=== PATIENT | female | born 1960 ===

== ENCOUNTER 2025-08-10 05:48 | Inpatient (IN) | payer MEDICAID, OTHER ==
[~2025-08-10] VITALS: Ht 152.4 cm; Wt 57.8 kg
--- NOTE | 2025-08-10 06:14 | ECG ---
[facility] Test Date: 2025-08-10 Test Time: 06:00:02 Pat Name: FIOR CHERRY Department: ED Room: 0248 Gender: F Panel Builder: giovanni : 1960 Requested By: EMERGENCY EMERGENCY Order Number: [id number] Reading MD: Andrea Vail Measurements Intervals [place] Rate: 77 P: 64 ME: 175 QRS: 70 QRSD: 151 T: 76 QT: 435 QTc: 493 Interpretive Statements Sinus rhythm Left bundle branch block Baseline wander in lead(s) V3 Electronically Signed On 08-11-2025 17:25:11 PST by Andrea Vail Please click the below link to view image of tracing.
[2025-08-10] MEDS: ALBUTEROL SULF 2.5 MG/0.5ML(0.5%) NEB SOLN NEB ONE (06:45)
[2025-08-10 06:58] LABS: Urine Protein, UAD Negative (Negative)
[2025-08-10] MEDS: ACETAMINOPHEN 325 MG TAB PO ONE ×2 (07:08→07:09)
[2025-08-10] MEDS: ONDANSETRON ODT 4 MG TAB PO ONE (07:09)
[2025-08-10] MEDS: SODIUM CHLORIDE 0.9% 1,000 ML IV ONE ×2 (07:09→09:38)
[2025-08-10] MEDS: IPRATROPIUM BROM 0.5 MG/2.5ML INH SOL NEB ONE (07:38)
[2025-08-10 07:53] LABS: Hemoglobin 12.6 g/dL (12.2-16.2); Nucleated Red Blood Cells % 0.1 %
[2025-08-10 07:55] LABS: Hematocrit 38.2 % (36.0-46.0); Mean Corpuscular Hemoglobin 29.2 pg (28.0-32.0); Mean Corpuscular Volume 88.8 fL (80.0-100.0)
[2025-08-10 08:01] LABS: Chloride 106 mmol/L (98-107); Potassium 4.4 mmol/L (3.5-5.1); Sodium 142 mmol/L (136-145)
[2025-08-10 08:02] LABS: Anion Gap 10 (5-15); Calcium 9.1 mg/dL (8.7-10.4); Carbon Dioxide 26 mmol/L (20-31)
[2025-08-10 08:07] LABS: BUN/Creatinine Ratio 18.3 (10.0-20.0); Blood Urea Nitrogen 19 mg/dL (9-23); Glucose 97 mg/dL (74-106)
--- NOTE | 2025-08-10 08:14 | DVH ---
INDICATION: sob TECHNIQUE: Frontal view of the chest. COMPARISON: None FINDINGS: . The heart and mediastinal contours are grossly unremarkable. There is no evidence of pleural disease. The lungs are clear. The bony structures of the chest are intact without fracture. IMPRESSION: 1. No evidence of acute disease.
--- NOTE | 2025-08-10 08:23 | ED.PDOC ---
SOB-HPI HPI Comments 63F presents to the ED with chief complaint of shortness of breath. Pt states that she has been having discomfort when taking deep breaths for 3 weeks. Last night Pt woke up unable to breathe properly, numbness in her tongue, and a sensation of "drowning." Pt attempted to use rescue inhaler but symptoms were not relieved. No noted exacerbating or relieving factors. Pt has associated symptoms of shoulder and neck pain. Pt denies associated symptoms of chest pain, diaphoresis, palpitations, chills, or fever. Pt said she recently went to urgent care and was given the covid and flu vaccines. Vitals are otherwise stable. Pt denies any other symptoms at this time. Chief Complaint: Shortness of Breath Time Seen by MD: 08:05 Reviewed notes: Nurses Notes Information Source: Patient Mode of Arrival: Wheelchair Past Medical History PAST MEDICAL HISTORY: Asthma Surgical History: Denies all surgeries [employer] History: No Pertinent [employer] History Family History Family History: Reviewed,noncontributory to illness, No family hx of Cancer, No family hx of DM, No family hx of Heart jordin, No family hx of HTN, No family hx ofKidney jordin, No family hx of Liver jordin, No family hx of Lung jordin, No family hx of Stroke Social History Smoker: Non-Smoker Alcohol: Denies ETOH Use Drugs: Denies Drug Use Lives In: Home Constitutional: denies: chills, diaphoresis, fatigue, fever, malaise, sweats, weakness, others EENTM: denies: blurred vision, double vision, ear bleeding, ear discharge, ear drainage, ear pain, ear ringing, eye pain, eye redness, hearing loss, mouth pain, mouth swelling, nasal discharge, nose bleeding, nose congestion, nose pa in, photophobia, tearing, throat pain, throat swelling, voice changes, others Respiratory: reports: SOB at rest, shortness of breath Cardiovascular: denies: chest pain, dizzy spells, diaphoresis, Dyspnea on exertion, edema, irregular heart beat, left arm pain, lightheadedness, palpitations, PND, syncope, others Gastrointestinal: denies: abdomen distended, abdominal pain, blood streaked bowels, constipated, diarrhea, dysphagia, difficulty swallowing, hematemesis, melena, nausea, poor appetite, poor fluid intake, rectal bleeding, rectal pain, vomiting, others Genitourinary: denies: abnormal vagina bleeding, burning, dyspareunia, dysuria, flank pain, frequency, hematuria, incontinence, pain, , vagina discharge, urgency, others Neurological: denies: dizziness, fainting, headache, left sided numbness, left sided weakness, numbness, paresthesia, pre-existing deficit, right sided numbness, right sided weakness, seizure, speech problems, tingling, tremors, weakness, others Musculoskeletal: reports: muscle pain Integumetry: denies: bruises, change in color, change in hair/nails, dryness, l aceration, lesions, lumps, rash, wounds, others Allergic/Immunocompromised: denies: Difficulty Healing, Frequent Infections, Hives, Itching, others Hematologic/Lymphatic: denies: anemia, blood clots, easy bleeding, easy bruising, swollen glands, others Endocrine: denies: excessive hunger, excessive sweating, excessive thirst, excessive urination, flushing, intolerance to cold, intolerance to heat, unexplained weight gain, unexplained weight loss, others Psychiatric: denies: anxiety, bipolar disorder, depression, hopeless, panic disorder, schizophrenia, sleepless, suicidal, others All Other Systems: Reviewed and Negative Physical Exam General Appearance: Mild Distress HEENT: Pharynx Normal Neck: Normal Inspection Respiratory: No Respiratory Distress Cardiovascular: No Edema Breast Exam: Deferred Gastrointestinal: Non Tender Genitalia: Deferred Pelvic: Deferred Rectal: Deferred Extremities: No pedal edema Neurologic: No Motor Deficits Cerebellar Function: NOT DONE Reflexes: NOT DONE Skin: Normal Color Lymphatic: NOT DONE EKG EKG : Pulse Rate (adult): 77 [place]: Normal Cardiac Rhythm: NSR Block: LBBB Hypertrophy: None Comments Sinus rhythm, Left bundle branch block, Baseline wander in lead(s) V3 Was a procedure done? Was a procedure done?: No Differential Dx Differential Diagnosis: Asthma, Respiratory Distress X-Ray, Labs, Meds, VS Vital Signs Date Time Temp Pulse Resp B/P (MAP) Pulse Ox O2 Delivery O2 Flow Rate FiO2 08/10/25 08:30 98.0 70 20 93/63 (73) 100 98.0 08/10/25 08:30 70 20 100 Room Air 08/10/25 08:23 77 08/10/25 07:38 16 96 Room Air* 0 21 08/10/25 06:00 77 08/10/25 05:50 99.3 81 19 129/84 100 99.3 Lab Test 08/10/25 07:28 08/10/25 07:22 08/10/25 06:13 Range/Units White Blood Count 6.0 4.4-10.8 10^3/uL Red Blood Count 4.30 4.0-5.20 10^6/uL Hemoglobin 12.6 12.2-16.2 g/dL Hematocrit 38.2 36.0-46.0 % Mean Corpuscular Volume 88.8 80.0-100.0 fL Mean Corpuscular Hemoglobin 29.2 28.0-32.0 pg Mean Corpuscular Hemoglobin Concent 32.9 32.0-36.0 g/dL Red Cell Distribution Width 13.4 11.8-14.3 % Platelet Count 461 H 140-450 10^3/uL Mean Platelet Volume 6.3 L 6.9-10.8 fL Neutrophils (%) (Auto) 50.1 37.0-80.0 % Lymphocytes (%) (Auto) 32.6 10.0-50.0 % Monocytes (%) (Auto) 7.5 0.0-12.0 % Eosinophils (%) (Auto) 8.6 H 0.0-7.0 % Basophils (%) (Auto) 1.2 0.0-2.0 % Neutrophils # (Auto) 3.0 1.6-8.6 10 ^3/uL Lymphocytes # (Auto) 2.0 0.4-5.4 10 ^3/uL Monocytes # (Auto) 0.4 0-1.3 10 ^3/uL Eosinophils # (Auto) 0.5 0-0.8 10 ^3/uL Basophils # (Auto) 0.1 0-0.2 10 ^3/uL Nucleated Red Blood Cells 0.1 % Sodium Level 142 136-145 mmol/L Potassium Level 4.4 3.5-5.1 mmol/L Chloride Level 106 98-107 mmol/L Carbon Dioxide Level 26 20-31 mmol/L Anion Gap 10 5-15 Blood Urea Nitrogen 19 9-23 mg/dL Creatinine 1.04 H 0.550-1.02 mg/dL Glomerular Filtration Rate Calc 60 >90 mL/min BUN/Creatinine Ratio 18.3 10.0-20.0 Serum Glucose 97 74-106 mg/dL Calcium Level 9.1 8.7-10.4 mg/dL Troponin I High Sensitivity 3 L </=34 ng/L Lactic Acid Level 1.4 0.4-2.0 mmol/L Urine Color Colorless Yellow Urine Clarity Clear Clear Urine pH 5.0 5.0-9.0 Urine Specific [place] 1.013 1.001-1.035 Urine Protein Negative Negative Urine Ketones Negative Negative Urine Blood Negative Negative /uL Urine Nitrite Negative Negative Urine Bilirubin Negative Negative Urine Urobilinogen Normal Negative mg/dL Urine Leukocyte Esterase 3+ Negative /uL Urine RBC 3 0 - 4 /hpf Urine Microscopic WBC 16 H 0-5 /HPF Urine Squamous Epithelial Cells Few <5 /hpf Urine Bacteria None seen None Seen /hpf Urine Mucus Few None Seen Urine Glucose 4+ H Normal mg/dL Current Medications Medications (Trade) Dose Ordered Sig/Erica Route Start Time Stop Time Status Last Admin Sodium Chloride 1,000 ml @ 1,000 mls/hr Q1H ONCE IV 08/10/25 06:45 08/10/25 07:44 DC 08/10/25 07:09 Acetaminophen (Tylenol Tablet) 650 mg ONCE ONCE PO 08/10/25 06:45 08/10/25 06:46 DC 08/10/25 07:08 Ondansetron HCl (Zofran Po) 4 mg ONCE ONCE PO 08/10/25 06:45 08/10/25 06:46 DC 08/10/25 07:09 Albuterol (Ventolin Medneb) 5 mg ONCE ONCE NEB 08/10/25 06:45 08/10/25 06:46 DC 08/10/25 06:45 Ipratropium [place] (Atrovent Medneb) 0.5 mg ONCE ONCE NEB 08/10/25 06:45 08/10/25 06:46 DC 08/10/25 07:[address] [address] Ph: [phone] DIAGNOSTIC IMAGING Diagnostic Imaging Report : [id number] Signed PATIENT: FIOR CHERRY ACCT: [id number] UNIT: [id number] : 1960 LOC: ER ROOM / BED: / AGE / SEX: 64 / F ADM STATUS: REG ER SERVICE 3 ORDERING PHYSICIAN: MITCHELL GUZMAN MD PROCEDURE(s): CXRP - CHEST PORTABLE REASON: sob ORDER NUMBER(s): [id number], ACCESSION NUMBER(s): [id number] INDICATION: sob TECHNIQUE: Frontal view of the chest. COMPARISON: None FINDINGS: . The heart and mediastinal contours are grossly unremarkable. There is no evidence of pleural disease. The lungs are clear. The bony structures of the chest are intact without fracture. IMPRESSION: 1. No evidence of acute disease. ATED BY: OMI TAYLOR MD DICTATED DATE/TIME: 08/10/25811 SIGNED BY: OMI TAYLOR MD SIGNED DATE/TIME: 08/10/25811 CC: Time of 1ST Reevaluation: 08:35 Reevaluation 1ST: Improved Patient Education/Counseling: Diagnosis, Treatment Family Education/Counseling: No Family Present SEPSIS Sepsis Screen Date sepsis recognized/suspect: Aug 10, 2025 Time Sepsis recognized/suspect: 0550 Recent Procedure: No On Antibiotic Therapy: No Respiratory Rate >20: No Heart Rate >90: No Temp<36 C (96.8 F) or >38.3 C: No SBP <90 or MAP <65 mmHG: No New Acute Mental Status Change: No Is the patient on CPAP, BIPAP,: No Physician Orders Chest Portable (08/10/25 06:44) Electrocardigram (08/10/25 06:44) Blood Culture (08/10/25 06:44) Troponin-I Hs (08/10/25 07:44) Troponin-I Hs (08/10/25 09:44) Electrocardigram (08/10/25 07:44) Electrocardigram (08/10/25 09:44) Ceftriaxone 1gm/50ml (Rocephin) (08/10/25 08:45) Ketorolac Injection (Toradol Injection) (08/10/25 08:45) Sodium Chloride 0.9% (08/10/25 08:45) Vital Signs Date Time Temp Pulse Resp B/P (MAP) Pulse Ox O2 Delivery O2 Flow Rate FiO2 08/10/25 08:30 98.0 70 20 93/63 (73) 100 98.0 12/17/25 08:30 70 20 100 Room Air 08/10/25 08:23 77 08/10/25 07:38 16 96 Room Air* 0 21 08/10/25 06:00 77 08/10/25 05:50 99.3 81 19 129/84 100 99.3 Laboratory Tests Test 08/10/25 07:22 08/10/25 07:28 Lactic Acid Level 1.4 mmol/L (0.4-2.0) White Blood Count 6.0 10^3/uL (4.4-10.8) Medications Medications Dose Ordered Sig/Erica Route Start Time Stop Time Status Last Admin Dose Admin Acetaminophen 650 mg ONCE ONCE PO 08/10/25 06:45 08/10/25 06:46 DC 08/10/25 07:08 Albuterol 5 mg ONCE ONCE NEB 08/10/25 06:45 08/10/25 06:46 DC 08/10/25 06:45 Ipratropium [place] 0.5 mg ONCE ONCE NEB 08/10/25 06:45 08/10/25 06:46 DC 08/10/25 07:38 Ondansetron HCl 4 mg ONCE ONCE PO 08/10/25 06:45 08/10/25 06:46 DC 08/10/25 07:09 Sodium Chloride 1,000 ml @ 1,000 mls/hr Q1H ONCE IV 08/10/25 06:45 08/10/25 07:44 DC 08/10/25 07:09 Departure 1 Departure Time of Disposition: 08:42 (Patient with a complicated urinary tract infection I sent him for a suspected sepsis. We will admit patient for further workup and expert consultation) Impression: Primary Impression: Suspected sepsis Additional Impressions: Complicated UTI (urinary tract infection) Generalized weakness Disposition: ADMITTED INPATIENT Admit to: Med Surg Condition: Guarded Critical Care Note Critical Care Time?: No Stability Stability form required: No Heart Score Heart Score: Heart Score Response (Comments) Value History Slightly Suspicious 0 EKG Normal 0 Age >65 2 Risk Factors No known risk factors 0 Troponin Normal limit 0 Total 2 I personally scribed for MITCHELL GUZMAN MD ([email or web address]) on 08/10/25 at 08:23. Electronically submitted by Nishant VELASCO). I personally scribed for MITCHELL GUZMAN MD ([email or web address]) on 08/10/25 at 08:25. Electronically submitted by Nishant Villegas ([email or web address]). MITCHELL GUZMAN MD Aug 10, 2025 08:23
[2025-08-10] MEDS: KETOROLAC TROMETH 30 MG/ML 1ML VIAL IV ONE (09:30)
--- NOTE | 2025-08-10 11:19 | DVHHP2 ---
History of Present Illness Reason for Visit: Shortness of breath History of Present Illness Jodi Rico is a 64-year-old female with past medical history of asthma, depression, and hyperlipidemia, who came to the hospital for shortness of breath. Patient states she was sleeping when she was abruptly woken up by coughing that caused her to become short of breath. She tired using her asthma medication to stop the coughing but it did not help. She states it began to feel like she couldn't breath so she ran to her daughter's room and asked her to call EMS. At time of assessment patient states she is still slightly short of breath, but is experiencing numbness and tingling in bilateral lower extremities. Smoke: No ALCOHOL: none Drugs: None Lives: with Family Domestic Violence: Neg Review of Systems Constitutional: No: Fever, Chills, Sweats, Weakness, Malaise, Other Eyes: No: Pain, Vision change, Conjunctivae inflammation, Eyelid inflammation, Other, Redness ENT: No: Ear pain, Ear discharge, Nose pain, Nose discharge, Nose congestion, Mouth pain, Mouth swelling, Throat pain, Throat swelling, Other Respiratory: Cough, Dry, Shortness of breath, SOB with excertion, Wheezing; No: Hemoptysis, Pleuritic Pain, Sputum, Wheezing, Other Cardiovascular: No: Chest Pain, Palpitations, Orthopnea, Paroxysmal Noc. Dyspnea, Edema, Lt Headedness, Other Gastrointestinal: No: Nausea, Vomiting, Abdominal Pain, Diarrhea, Constipation, Melena, Hematochezia, Other Genitourinary: No Dysuria, No Frequency, No Incontinence, No Hematuria, No Retention, No Other Musculoskeletal: No: other, neck pain, shoulder pain, arm pain, back pain, hand pain, leg pain, foot pain Skin: No: Rash, Lesions, Jaundice, Bruising, Other Neurological: Numbness (bilateral lower extremities); No: Weakness, Incoordination, Change in speech, Confusion, Seizures, Other Allergies: Coded Allergies: NO KNOWN ALLERGIES (Unverified , 08/10/25) Exam Vital Signs Vital Signs Date Time Temp Pulse Resp B/P (MAP) Pulse Ox O2 Delivery O2 Flow Rate FiO2 08/10/25 08:30 98.0 70 20 93/63 (73) 100 98.0 08/10/25 08:30 Room Air 08/10/25 07:38 0 21 General Appearance: Alert, Oriented X3, Cooperative, mild distress HEENT: Atraumatic, PERRLA, Mucous membr. moist/pink Respiratory: Clear to auscultation, Normal air movement Cardiovascular: Regular rate, Normal S1, Normal S2, No murmurs Abdominal: Normal bowel sounds, Soft, No tenderness Extremities: No clubbing, No cyanosis, No edema, Normal pulses Skin: No rashes, No breakdown, No significant lesion Neuro: Normal gait, Normal speech, Strength at 5/5 X4 ext Psych/Mental Status: Other (severe anxiety) Labs/Xrays Labs Test 08/10/25 08:37 08/10/25 07:28 08/10/25 07:22 08/10/25 06:13 Range/Units Troponin I High Sensitivity 4 </=34 ng/L White Blood Count 6.0 4.4-10.8 10^3/uL Red Blood Count 4.30 4.0-5.20 10^6/uL Hemoglobin 12.6 12.2-16.2 g/dL Hematocrit 38.2 36.0-46.0 % Mean Corpuscular Volume 88.8 80.0-100.0 fL Mean Corpuscular Hemoglobin 29.2 28.0-32.0 pg Mean Corpuscular Hemoglobin Concent 32.9 32.0-36.0 g/dL Red Cell Distribution Width 13.4 11.8-14.3 % Platelet Count 461 H 140-450 10^3/uL Mean Platelet Volume 6.3 L 6.9-10.8 fL Neutrophils (%) (Auto) 50.1 37.0-80.0 % Lymphocytes (%) (Auto) 32.6 10.0-50.0 % Monocytes (%) (Auto) 7.5 0.0-12.0 % Eosinophils (%) (Auto) 8.6 H 0.0-7.0 % Basophils (%) (Auto) 1.2 0.0-2.0 % Neutrophils # (Auto) 3.0 1.6-8.6 10 ^3/uL Lymphocytes # (Auto) 2.0 0.4-5.4 10 ^3/uL Monocytes # (Auto) 0.4 0-1.3 10 ^3/uL Eosinophils # (Auto) 0.5 0-0.8 10 ^3/uL Basophils # (Auto) 0.1 0-0.2 10 ^3/uL Nucleated Red Blood Cells 0.1 % Sodium Level 142 136-145 mmol/L Potassium Level 4.4 3.5-5.1 mmol/L Chloride Level 106 98-107 mmol/L Carbon Dioxide Level 26 20-31 mmol/L Anion Gap 10 5-15 Blood Urea Nitrogen 19 9-23 mg/dL Creatinine 1.04 H 0.550-1.02 mg/dL Glomerular Filtration Rate Calc 60 >90 mL/min BUN/Creatinine Ratio 18.3 10.0-20.0 Serum Glucose 97 74-106 mg/dL Calcium Level 9.1 8.7-10.4 mg/dL Lactic Acid Level 1.4 0.4-2.0 mmol/L Urine Color Colorless Yellow Urine Clarity Clear Clear Urine pH 5.0 5.0-9.0 Urine Specific [place] 1.013 1.001-1.035 Urine Protein Negative Negative Urine Ketones Negative Negative Urine Blood Negative Negative /uL Urine Nitrite Negative Negative Urine Bilirubin Negative Negative Urine Urobilinogen Normal Negative mg/dL Urine Leukocyte Esterase 3+ Negative /uL Urine RBC 3 0 - 4 /hpf Urine Microscopic WBC 16 H 0-5 /HPF Urine Squamous Epithelial Cells Few <5 /hpf Urine Bacteria None seen None Seen /hpf Urine Mucus Few None Seen Urine Glucose 4+ H Normal mg/dL TECHNIQUE: Frontal view of the chest. FINDINGS: The heart and mediastinal contours are grossly unremarkable. There is no evidence of pleural disease. The lungs are clear. The bony structures of the chest are intact without fracture. IMPRESSION: 1. No evidence of acute disease. SEPSIS Sepsis Screen Date sepsis recognized/suspect: Aug 10, 2025 Time Sepsis recognized/suspect: 0550 Recent Procedure: No On Antibiotic Therapy: No Respiratory Rate >20: No Heart Rate >90: No Temp<36 C (96.8 F) or >38.3 C: No SBP <90 or MAP <65 mmHG: No New Acute Mental Status Change: No Is the patient on CPAP, BIPAP,: No Physician Orders Chest Portable (08/10/25 06:44) Electrocardigram (08/10/25 06:44) Blood Culture (08/10/25 06:44) Electrocardigram (08/10/25 07:44) Electrocardigram (08/10/25 09:44) Vital Signs Date Time Temp Pulse Resp B/P (MAP) Pulse Ox O2 Delivery O2 Flow Rate FiO2 08/10/25 08:30 98.0 70 20 93/63 (73) 100 98.0 08/10/25 08:30 70 20 100 Room Air 08/10/25 08:23 77 08/10/25 07:38 16 96 Room Air* 0 21 08/10/25 06:00 77 08/10/25 05:50 99.3 81 19 129/84 100 99.3 Laboratory Tests Test 08/10/25 07:22 08/10/25 07:28 Lactic Acid Level 1.4 mmol/L (0.4-2.0) White Blood Count 6.0 10^3/uL (4.4-10.8) Medications Medications Dose Ordered Sig/Erica Route Start Time Stop Time Status Last Admin Dose Admin Acetaminophen 650 mg ONCE ONCE PO 08/10/25 06:45 08/10/25 06:46 DC 08/10/25 07:08 650 MG Albuterol 5 mg ONCE ONCE NEB 08/10/25 06:45 08/10/25 06:46 DC 08/10/25 06:45 5 MG Ceftriaxone Sodium 50 ml @ 100 mls/hr ONCE ONCE IV 08/10/25 08:45 08/10/25 09:14 DC 08/10/25 09:30 100 MLS/HR Ipratropium [place] 0.5 mg ONCE ONCE NEB 08/10/25 06:45 08/10/25 06:46 DC 08/10/25 07:38 0.5 MG Ketorolac Tromethamine 15 mg ONCE ONCE IV 08/10/25 08:45 08/10/25 08:56 DC 08/10/25 09:30 15 MG Ondansetron HCl 4 mg ONCE ONCE PO 08/10/25 06:45 08/10/25 06:46 DC 08/10/25 07:09 4 MG Sodium Chloride 1,000 ml @ 1,000 mls/hr Q1H ONCE IV 08/10/25 06:45 08/10/25 07:44 DC 08/10/25 07:09 1,000 MLS/HR Sodium Chloride 1,000 ml @ 1,000 mls/hr Q1H ONCE IV 08/10/25 08:45 08/10/25 09:44 DC 08/10/25 09:38 1,000 MLS/HR Assessment/Plan Assessment/Plan Assessment: Bilateral leg paresthesia, Dyspnea, Asthma exacerbation, Depression, Hyperlipidemia, 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
[2025-08-10 13:00] VITALS: BP 128/74; PULSE 66; RESP 14; TEMP 98.1; O2SAT 97
[2025-08-10] MEDS: HYDROcodone-ACET 5/325MG TAB PO PRN (13:26)
[2025-08-10] MEDS: SODIUM CHLOR 0.9% PF (SALINE LOCK) 10ML VIAL/SYR IV SCH (13:26)
[2025-08-10] MEDS: ACETAMINOPHEN 325 MG TAB PO PRN (17:08)
[2025-08-10 17:30] VITALS: BP 144/82; PULSE 58; RESP 19; TEMP 98; O2SAT 98
[2025-08-10 20:00] VITALS: PULSE 60; RESP 16; O2SAT 97
[2025-08-10 21:00] VITALS: BP 111/72; PULSE 60; RESP 16; TEMP 97.9; O2SAT 97
[2025-08-11] VITALS (13 sets, daily range): BP systolic 106–127; BP diastolic 58–85; PULSE 56–97; RESP 14–19; TEMP 97.8–98.7; O2SAT 91–100
[2025-08-11 06:45] LABS: Hematocrit 37.9 % (36.0-46.0); Hemoglobin 12.7 g/dL (12.2-16.2); Mean Corpuscular Hemoglobin 29.8 pg (28.0-32.0); Mean Corpuscular Volume 88.6 fL (80.0-100.0); Nucleated Red Blood Cells % 0.1 %
[2025-08-11 07:07] LABS: Alanine Aminotransferase 17 U/L (7-40); Albumin 4.4 g/dL (3.2-4.8); Alkaline Phosphatase 74 U/L (46-116); Anion Gap 11 (5-15); BUN/Creatinine Ratio 18.9 (10.0-20.0); Blood Urea Nitrogen 18 mg/dL (9-23); Calcium 9.5 mg/dL (8.7-10.4); Carbon Dioxide 25 mmol/L (20-31); Chloride 105 mmol/L (98-107); Glucose 104 mg/dL (74-106); Potassium 4.7 mmol/L (3.5-5.1); Sodium 141 mmol/L (136-145); Total Protein 7.4 g/dL (5.7-8.2)
[2025-08-11 07:15] LABS: Bilirubin, Total 0.4 mg/dL (0.2-1.0)
[2025-08-11] MEDS: IPRATROPIUM BROM 0.5 MG/2.5ML INH SOL NEB PRN (11:26)
[2025-08-11] MEDS: ALBUTEROL SULF 2.5 MG/0.5ML(0.5%) NEB SOLN NEB PRN (11:26)
[2025-08-11] MEDS ORDERED: AZITHROMYCIN 500MG/250ML 250 ML IV ONE (12:45)
[2025-08-11] MEDS: methylPREDNISolone SOD SUCC 125 MG/2 ML VL IV SCH (14:11)
[2025-08-11] MEDS: AZITHROMYCIN 250 MG TAB PO ONE (14:12)
[2025-08-11] MEDS: ONDANSETRON HCL 4 MG/2 ML VIAL IV PRN (16:06)
[2025-08-11] MEDS: DOCUSATE SOD 100 MG CAP PO PRN (16:06)
[2025-08-11] MEDS: MAALOX PLUS or MAALOX 30 ML PO PRN (21:30)
--- NOTE | 2025-08-11 23:18 | DVHPN2 ---
Subjective The patient seen and examined at bedside. Still have numbness of leg. Reviewed: Care Plan, H&P, Labs, Medications, Previous Orders, Radiology Changes from previous H/P or p: No Changes Eyes: No Pain, No Vision change, No Conjunctivae inflammation, No Eyelid inflammation, No Other, No Redness ENT: No Ear pain, No Ear discharge, No Nose pain, No Nose discharge, No Nose congestion, No Mouth pain, No Mouth swelling, No Throat pain, No Throat swelling, No Other Cardiovascular: No Chest Pain, No Palpitations, No Orthopnea, No Paroxysmal Noc. Dyspnea, No Edema, No Lt Headedness, No Other Respiratory: Cough, Dry, Shortness of breath, SOB with excertion, Wheezing; No Hemoptysis, No Pleuritic Pain, No Sputum, No Other Gastrointestinal: No Nausea, No Vomiting, No Abdominal Pain, No Diarrhea, No Constipation, No Melena, No Hematochezia, No Other Genitourinary: No Dysuria, No Frequency, No Incontinence, No Hematuria, No Retention, No Other Musculoskeletal: No other, No neck pain, No shoulder pain, No arm pain, No back pain, No hand pain, No leg pain, No foot pain Skin: No Rash, No Lesions, No Jaundice, No Bruising, No Other Objective Vitals Vital Signs Date Time Temp Pulse Resp B/P (MAP) Pulse Ox O2 Delivery O2 Flow Rate FiO2 08/11/25 21:00 97.9 76 18 123/78 (93) 95 97.9 08/11/25 20:00 Nasal Cannula* 2 28 Intake/Output Intake and Output 08/11/25 07:00 Intake Total 2850 ml Balance 2850 ml Intake Oral 800 ml IV Total 2050 ml # Voids 4 # Bowel Movements 2 General Appearance: Alert, Oriented X3, Cooperative, No acute distress HEENT: Atraumatic, PERRLA, EOMI, Mucous membr. moist/pink Neck: Supple Lungs: Clear to auscultation, Normal air movement Cardiovascular: Regular rate, Normal S1, Normal S2, No murmurs, Gallops, Rubs Abdomen: Normal bowel sounds, Soft, No tenderness Neuro: Cranial nerves 3-12 NL Psych/Mental Status: Mental status NL Medications Current Medications Medications Dose Ordered Sig/Erica Route Start Time Stop Time Status Last Admin Dose Admin Sodium Chloride 10 ml Q8HR IV 08/10/25 14:00 08/11/25 21:29 10 ML Acetaminophen/ Hydrocodone Bitart 1 tab Q4HP PRN PO 08/10/25 11:15 08/11/25 21:33 1 TAB Ondansetron HCl 4 mg Q4HP PRN IV 08/10/25 11:15 08/11/25 16:06 4 MG Docusate Sodium 100 mg BIDPRN PRN PO 08/10/25 11:15 08/11/25 16:06 100 MG Acetaminophen 650 mg Q6HP PRN PO 08/10/25 11:15 08/11/25 14:19 650 MG Ipratropium [place] 0.5 mg Q6HPRN PRN NEB 08/11/25 10:15 08/11/25 11:26 0.5 MG Albuterol 2.5 mg Q6HPRN PRN NEB 08/11/25 10:15 08/11/25 11:26 2.5 MG Ceftriaxone Sodium 50 ml @ 100 mls/hr DAILY@09 IV 08/12/25 09:00 Methylprednisolone Sodium Succinate 60 mg Q8HR IV 08/11/25 14:00 08/11/25 21:30 60 MG Azithromycin 500 mg DAILY PO 08/12/25 10:00 Pantoprazole Sodium 40 mg DAILY@0600 PO 08/12/25 06:00 Al Hydrox/Mg Hydrox/Simethicone 30 ml Q4HP PRN PO 08/11/25 20:00 08/11/25 21:30 30 ML Laboratory Results Laboratory Tests 08/11/25 05:43 Chemistry Test 08/11/25 05:43 Albumin 4.4 g/dL (3.2-4.8) Calcium Level 9.5 mg/dL (8.7-10.4) Total Protein 7.4 g/dL (5.7-8.2) LFT Test 08/11/25 05:43 Alanine Aminotransferase (ALT) 17 U/L (7-40) Alkaline Phosphatase 74 U/L (46-116) Aspartate Amino Transferase (AST) 18 U/L (13-40) Total Bilirubin 0.4 mg/dL (0.2-1.0) Urinalysis Test 08/10/25 06:13 Urine Color Colorless (Yellow) Urine Clarity Clear (Clear) Urine pH 5.0 (5.0-9.0) Urine Specific [place] 1.013 (1.001-1.035) Urine Protein Negative (Negative) Urine Ketones Negative (Negative) Urine Blood Negative /uL (Negative) Urine Nitrite Negative (Negative) Urine Bilirubin Negative (Negative) Urine Urobilinogen Normal mg/dL (Negative) Urine Leukocyte Esterase 3+ /uL (Negative) Urine RBC 3 /hpf (0 - 4) Urine Microscopic WBC 16 /HPF (0-5) H Urine Squamous Epithelial Cells Few /hpf (<5) Urine Bacteria None seen /hpf (None Seen) Urine Mucus Few (None Seen) Urine Glucose 4+ mg/dL (Normal) H Microbiology Microbiology Date/Time Source Procedure Growth Status 08/10/25 07:40 Blood Blood Culture - Preliminary NO GROWTH AFTER 24 HOURS OF INCUBATION. Resulted Labs and/or images reviewed: Labs reviewed by me Assessment/Plan Assessment/Plan Asthma exacerbation, Bilateral leg paresthesia, Dyspnea, Depression, Hyperlipidemia, DM type 2 I will start patient on IV antibiotic: Rocephin and azithromax I will start the patient on Solumedrol 60mg IV q8h I will put patient on SSI , moderate scale. Will monitor leg numbness. Continue nebulize Plan discussed with: Patient My Orders Orders - GLADIS BRISENO MD Procedure Category Date Status Time Ipratropium Medneb PHA 08/11/25 In Process (Atrovent Medneb) 10:15 Med Jaret Sub Treatment RT 08/11/25 Logged 10:09 Med Neb Initial RT 08/11/25 Logged Treatment 10:09 Cont Med Neb Intial Tx RT 08/11/25 Logged 10:09 Albuterol Medneb PHA 08/11/25 In Process (Ventolin Medneb) 10:15 Ceftriaxone 1gm/50ml PHA 08/12/25 In Process (Rocephin) 09:00 Methylprednisolone PHA 08/11/25 In Process Sod Succ (Solu Medrol 14:00 Azithromycin Tablet PHA 08/12/25 In Process (Zithromax Tablet) 10:00 Pantoprazole Tablet PHA 08/12/25 In Process (Protonix Tablet) 06:00 Alum & Mag PHA 08/11/25 In Process Hydrox-Simethicone 20:00 Date of Service: Aug 11, 2025 Billing Provider: GLADIS BRISENO MD Common Visit Codes: [id number] INP/OBS CARE(HIGH) GLADIS BRISENO MD Aug 11, 2025 23:18
[2025-08-12] VITALS (11 sets, daily range): BP systolic 110–135; BP diastolic 64–76; PULSE 67–77; RESP 14–19; TEMP 97–98.2; O2SAT 90–99
[2025-08-12] MEDS: PANTOPRAZOLE 40 MG TAB PO SCH (05:33)
[2025-08-12] MEDS: AZITHROMYCIN 250 MG TAB PO SCH (08:20)
[2025-08-12] MEDS ORDERED: AZITHROMYCIN 500MG/250ML 250 ML IV SCH (10:00)
[2025-08-12] MEDS: POLYETHYLENE GLYCOL 17 GM PWDR PO PRN (10:07)
[2025-08-12] MEDS ORDERED: ALBUTEROL SULF 2.5 MG/0.5ML(0.5%) NEB SOLN NEB PRN (12:00)
[2025-08-12] MEDS ORDERED: IPRATROPIUM BROM 0.5 MG/2.5ML INH SOL NEB PRN (12:00)
--- NOTE | 2025-08-12 12:26 | DVH ---
EXAM: XY R SHOULDER 2+ VIEW XRAY CLINICAL INDICATION: RIGHT SHOULDER PAIN TECHNIQUE: XY R SHOULDER 2+ VIEW XRAY COMPARISON: None FINDINGS/IMPRESSION: There is no evidence of acute fracture or dislocation. Degenerative changes noted. The alignment is anatomical. There is no radiopaque foreign body.
--- NOTE | 2025-08-12 13:27 | DVHPN2 ---
Subjective The patient seen and examined at bedside. Still have numbness of leg. Now also complains of headache. Reviewed: Care Plan, H&P, Labs, Medications, Previous Orders, Radiology Changes from previous H/P or p: No Changes Eyes: No Pain, No Vision change, No Conjunctivae inflammation, No Eyelid inflammation, No Other, No Redness ENT: No Ear pain, No Ear discharge, No Nose pain, No Nose discharge, No Nose congestion, No Mouth pain, No Mouth swelling, No Throat pain, No Throat swelling, No Other Cardiovascular: No Chest Pain, No Palpitations, No Orthopnea, No Paroxysmal Noc. Dyspnea, No Edema, No Lt Headedness, No Other Respiratory: Cough, Dry, Shortness of breath, SOB with excertion, Wheezing; No Hemoptysis, No Pleuritic Pain, No Sputum, No Other Gastrointestinal: No Nausea, No Vomiting, No Abdominal Pain, No Diarrhea, No Constipation, No Melena, No Hematochezia, No Other Genitourinary: No Dysuria, No Frequency, No Incontinence, No Hematuria, No Retention, No Other Musculoskeletal: No other, No neck pain, No shoulder pain, No arm pain, No back pain, No hand pain, No leg pain, No foot pain Skin: No Rash, No Lesions, No Jaundice, No Bruising, No Other Objective Vitals Vital Signs Date Time Temp Pulse Resp B/P (MAP) Pulse Ox O2 Delivery O2 Flow Rate FiO2 08/12/25 13:00 97.0 67 16 110/64 (79) 97 97.0 08/12/25 10:00 Room Air 0.0 08/12/25 10:00 21 Intake/Output Intake and Output 08/12/25 07:00 Intake Total 1140 ml Balance 1140 ml Intake Oral 1140 ml # Voids 8 General Appearance: Alert, Oriented X3, Cooperative, No acute distress HEENT: Atraumatic, PERRLA, EOMI, Mucous membr. moist/pink Neck: Supple Lungs: Clear to auscultation, Normal air movement Cardiovascular: Regular rate, Normal S1, Normal S2, No murmurs, Gallops, Rubs Abdomen: Normal bowel sounds, Soft, No tenderness Neuro: Cranial nerves 3-12 NL Psych/Mental Status: Mental status NL Medications Current Medications Medications Dose Ordered Sig/Erica Route Start Time Stop Time Status Last Admin Dose Admin Sodium Chloride 10 ml Q8HR IV 08/10/25 14:00 08/12/25 05:32 10 ML Acetaminophen/ Hydrocodone Bitart 1 tab Q4HP PRN PO 08/10/25 11:15 08/12/25 02:05 1 TAB Ondansetron HCl 4 mg Q4HP PRN IV 08/10/25 11:15 08/12/25 08:20 4 MG Docusate Sodium 100 mg BIDPRN PRN PO 08/10/25 11:15 08/12/25 08:20 100 MG Acetaminophen 650 mg Q6HP PRN PO 08/10/25 11:15 08/12/25 08:20 650 MG Ceftriaxone Sodium 50 ml @ 100 mls/hr DAILY@09 IV 08/12/25 09:00 08/12/25 08:20 100 MLS/HR Methylprednisolone Sodium Succinate 60 mg Q8HR IV 08/11/25 14:00 08/12/25 05:33 60 MG Azithromycin 500 mg DAILY PO 08/12/25 10:00 08/12/25 08:20 500 MG Pantoprazole Sodium 40 mg DAILY@0600 PO 08/12/25 06:00 08/12/25 05:33 40 MG Al Hydrox/Mg Hydrox/Simethicone 30 ml Q4HP PRN PO 08/11/25 20:00 08/12/25 05:32 30 ML Albuterol 2.5 mg Q4HPRN PRN NEB 08/12/25 12:00 Ipratropium [place] 0.5 mg Q4HPRN PRN NEB 08/12/25 12:00 Polyethylene Glycol 17 gm DAILYPRN PRN PO 08/12/25 09:30 08/12/25 10:07 17 GM Laboratory Results Laboratory Tests 08/11/25 05:43 Urinalysis Test 08/10/25 06:13 Urine Color Colorless (Yellow) Urine Clarity Clear (Clear) Urine pH 5.0 (5.0-9.0) Urine Specific [place] 1.013 (1.001-1.035) Urine Protein Negative (Negative) Urine Ketones Negative (Negative) Urine Blood Negative /uL (Negative) Urine Nitrite Negative (Negative) Urine Bilirubin Negative (Negative) Urine Urobilinogen Normal mg/dL (Negative) Urine Leukocyte Esterase 3+ /uL (Negative) Urine RBC 3 /hpf (0 - 4) Urine Microscopic WBC 16 /HPF (0-5) H Urine Squamous Epithelial Cells Few /hpf (<5) Urine Bacteria None seen /hpf (None Seen) Urine Mucus Few (None Seen) Urine Glucose 4+ mg/dL (Normal) H Microbiology Microbiology Date/Time Source Procedure Growth Status 08/10/25 07:40 Blood Blood Culture - Preliminary NO GROWTH AFTER 48 HOURS OF INCUBATION. Resulted Labs and/or images reviewed: Labs reviewed by me Assessment/Plan Assessment/Plan Asthma exacerbation, Bilateral leg paresthesia, Dyspnea, Depression, Hyperlipidemia, DM type 2 I will start patient on IV antibiotic: Rocephin and azithromax I will start the patient on Solumedrol 60mg IV q8h I will put patient on SSI , moderate scale. Will monitor leg numbness. Continue nebulize Will give toradol 15mg IV q 8 h PRN for headache. Plan discussed with: Patient My Orders Orders - GLADIS BRISENO MD Procedure Category Date Status Time Pantoprazole Tablet PHA 08/12/25 In Process (Protonix Tablet) 06:00 Alum & Mag PHA 08/11/25 In Process Hydrox-Simethicone 20:00 Albuterol Medneb PHA 08/12/25 In Process (Ventolin Medneb) 12:00 Ipratropium Medneb PHA 08/12/25 In Process (Atrovent Medneb) 12:00 Polyethylene Glycol PHA 08/12/25 In Process 17g Powder (Miralax 09:30 R Shoulder 2+ View XY 08/12/25 Resulted Xray 11:05 Date of Service: Aug 12, 2025 Billing Provider: GLADIS BRISENO MD Common Visit Codes: [id number] INP/OBS CARE(HIGH) GLADIS BRISENO MD Aug 12, 2025 13:27
[2025-08-12] MEDS: KETOROLAC TROMETH 30 MG/ML 1ML VIAL IV PRN (16:22)
[2025-08-13] VITALS (10 sets, daily range): BP systolic 104–120; BP diastolic 59–73; PULSE 62–83; RESP 16–18; TEMP 96.7–98.1; O2SAT 95–98
[2025-08-13 07:04] LABS: Nucleated Red Blood Cells % 0.0 %
[2025-08-13 07:06] LABS: Hematocrit 37.8 % (36.0-46.0); Hemoglobin 12.5 g/dL (12.2-16.2); Mean Corpuscular Hemoglobin 29.5 pg (28.0-32.0); Mean Corpuscular Volume 89.1 fL (80.0-100.0)
[2025-08-13 08:32] LABS: Anion Gap 10 (5-15); Carbon Dioxide 28 mmol/L (20-31); Chloride 100 mmol/L (98-107); Potassium 5.1 mmol/L (3.5-5.1); Sodium 138 mmol/L (136-145)
[2025-08-13 08:33] LABS: Calcium 9.7 mg/dL (8.7-10.4)
[2025-08-13 08:38] LABS: BUN/Creatinine Ratio 21.2 (10.0-20.0); Blood Urea Nitrogen 22 mg/dL (9-23)
[2025-08-13 08:41] LABS: Glucose 149 mg/dL (74-106)
[2025-08-13] MEDS ORDERED: ARTIFICIAL TEARS 15ml EACHEYE PRN (12:00)
--- NOTE | 2025-08-13 14:34 | DVHPN2 ---
Subjective The patient seen and examined at bedside. Today she want shoulder injection. She complains of shoulder pain. XRay done. Reviewed: Care Plan, H&P, Labs, Medications, Previous Orders, Radiology Changes from previous H/P or p: No Changes Eyes: No Pain, No Vision change, No Conjunctivae inflammation, No Eyelid inflammation, No Other, No Redness ENT: No Ear pain, No Ear discharge, No Nose pain, No Nose discharge, No Nose congestion, No Mouth pain, No Mouth swelling, No Throat pain, No Throat swelling, No Other Cardiovascular: No Chest Pain, No Palpitations, No Orthopnea, No Paroxysmal Noc. Dyspnea, No Edema, No Lt Headedness, No Other Respiratory: Cough, Dry, Shortness of breath, SOB with excertion, Wheezing; No Hemoptysis, No Pleuritic Pain, No Sputum, No Other Gastrointestinal: No Nausea, No Vomiting, No Abdominal Pain, No Diarrhea, No Constipation, No Melena, No Hematochezia, No Other Genitourinary: No Dysuria, No Frequency, No Incontinence, No Hematuria, No Retention, No Other Musculoskeletal: No other, No neck pain, No shoulder pain, No arm pain, No back pain, No hand pain, No leg pain, No foot pain Skin: No Rash, No Lesions, No Jaundice, No Bruising, No Other Objective Vitals Vital Signs Date Time Temp Pulse Resp B/P (MAP) Pulse Ox O2 Delivery O2 Flow Rate FiO2 08/13/25 12:39 98.1 62 16 104/68 (80) 97 98.1 08/13/25 10:00 Nasal Cannula* 2 28 Intake/Output Intake and Output 08/13/25 07:00 Intake Total 1960 ml Balance 1960 ml Intake Oral 1960 ml # Voids 5 # Bowel Movements 2 General Appearance: Alert, Oriented X3, Cooperative, No acute distress HEENT: Atraumatic, PERRLA, EOMI, Mucous membr. moist/pink Neck: Supple Lungs: Clear to auscultation, Normal air movement Cardiovascular: Regular rate, Normal S1, Normal S2, No murmurs, Gallops, Rubs Abdomen: Normal bowel sounds, Soft, No tenderness Neuro: Cranial nerves 3-12 NL Psych/Mental Status: Mental status NL Medications Current Medications Medications Dose Ordered Sig/Erica Route Start Time Stop Time Status Last Admin Dose Admin Sodium Chloride 10 ml Q8HR IV 08/10/25 14:00 08/13/25 05:10 10 ML Acetaminophen/ Hydrocodone Bitart 1 tab Q4HP PRN PO 08/10/25 11:15 08/13/25 10:04 1 TAB Ondansetron HCl 4 mg Q4HP PRN IV 08/10/25 11:15 08/12/25 08:20 4 MG Docusate Sodium 100 mg BIDPRN PRN PO 08/10/25 11:15 08/12/25 08:20 100 MG Acetaminophen 650 mg Q6HP PRN PO 08/10/25 11:15 08/12/25 14:34 650 MG Ceftriaxone Sodium 50 ml @ 100 mls/hr DAILY@09 IV 08/12/25 09:00 08/13/25 09:58 100 MLS/HR Methylprednisolone Sodium Succinate 60 mg Q8HR IV 08/11/25 14:00 08/13/25 05:10 60 MG Azithromycin 500 mg DAILY PO 08/12/25 10:00 08/13/25 09:58 500 MG Pantoprazole Sodium 40 mg DAILY@0600 PO 08/12/25 06:00 08/13/25 05:10 40 MG Al Hydrox/Mg Hydrox/Simethicone 30 ml Q4HP PRN PO 08/11/25 20:00 08/12/25 05:32 30 ML Albuterol 2.5 mg Q4HPRN PRN NEB 08/12/25 12:00 Ipratropium [place] 0.5 mg Q4HPRN PRN NEB 08/12/25 12:00 Polyethylene Glycol 17 gm DAILYPRN PRN PO 08/12/25 09:30 08/13/25 09:57 17 GM Ketorolac Tromethamine 15 mg Q8HP PRN IV 08/12/25 15:00 08/17/25 14:59 08/12/25 16:22 15 MG Artificial Tears 1 drop Q4HP PRN EACHEYE 08/13/25 12:30 Laboratory Results Laboratory Tests 08/13/25 06:28 Chemistry Test 08/13/25 06:28 Calcium Level 9.7 mg/dL (8.7-10.4) Urinalysis Test 08/10/25 06:13 Urine Color Colorless (Yellow) Urine Clarity Clear (Clear) Urine pH 5.0 (5.0-9.0) Urine Specific [place] 1.013 (1.001-1.035) Urine Protein Negative (Negative) Urine Ketones Negative (Negative) Urine Blood Negative /uL (Negative) Urine Nitrite Negative (Negative) Urine Bilirubin Negative (Negative) Urine Urobilinogen Normal mg/dL (Negative) Urine Leukocyte Esterase 3+ /uL (Negative) Urine RBC 3 /hpf (0 - 4) Urine Microscopic WBC 16 /HPF (0-5) H Urine Squamous Epithelial Cells Few /hpf (<5) Urine Bacteria None seen /hpf (None Seen) Urine Mucus Few (None Seen) Urine Glucose 4+ mg/dL (Normal) H Microbiology Microbiology Date/Time Source Procedure Growth Status 08/10/25 07:40 Blood Blood Culture - Preliminary NO GROWTH AFTER 72 HOURS OF INCUBATION. Resulted Labs and/or images reviewed: Labs reviewed by me Assessment/Plan Assessment/Plan Asthma exacerbation, Bilateral leg paresthesia, Dyspnea, Depression, Hyperlipidemia, DM type 2 Left shoulder pain I will start patient on IV antibiotic: Rocephin and azithromax I will start the patient on Solumedrol 60mg IV q8h I will put patient on SSI , moderate scale. Will monitor leg numbness. Continue nebulize Will give toradol 15mg IV q 8 h PRN for headache. XRay left shoulder is negative for fracture. Explains to the patient that shoulder injection need to be done as outpatient. Patient need to ask her PCP to refer her to orthopedic surgeon Plan discussed with: Patient My Orders Orders - GLADIS BRISENO MD Procedure Category Date Status Time Ketorolac Injection PHA 08/12/25 In Process (Toradol Injection) 15:00 Complete Blood Count LAB 08/14/25 Verified 05:00 Complete Blood Count LAB 08/15/25 Verified 05:00 Basic Metabolic Panel LAB 08/14/25 Verified 05:00 Basic Metabolic Panel LAB 08/15/25 Verified 05:00 Artificial Tear 15ml PHA 08/13/25 In Process Opthalmic (Tears Na 12:30 Date of Service: Aug 13, 2025 Billing Provider: GLADIS BRISENO MD Common Visit Codes: [id number] INP/OBS CARE(HIGH) GLADIS BRISENO MD Aug 13, 2025 14:34
[2025-08-13] MEDS: ARTIFICIAL TEARS 15ml EACHEYE PRN (17:28)
[2025-08-14] VITALS (8 sets, daily range): BP systolic 101–123; BP diastolic 67–75; PULSE 65–72; RESP 16–19; TEMP 37.1; O2SAT 95–97
[2025-08-14 07:02] LABS: Calcium 9.7 mg/dL (8.7-10.4); Chloride 99 mmol/L (98-107); Potassium 4.4 mmol/L (3.5-5.1); Sodium 139 mmol/L (136-145)
[2025-08-14 07:03] LABS: Anion Gap 11 (5-15); Carbon Dioxide 29 mmol/L (20-31)
[2025-08-14 07:06] LABS: Hematocrit 38.3 % (36.0-46.0); Hemoglobin 12.8 g/dL (12.2-16.2); Mean Corpuscular Hemoglobin 29.4 pg (28.0-32.0); Mean Corpuscular Volume 88.3 fL (80.0-100.0); Nucleated Red Blood Cells % 0.0 %
[2025-08-14 07:08] LABS: BUN/Creatinine Ratio 22.5 (10.0-20.0); Blood Urea Nitrogen 20 mg/dL (9-23)
[2025-08-14 07:10] LABS: Glucose 140 mg/dL (74-106)
[2025-08-14] MEDS ORDERED: HYDR-4902 PO ×2 (14:05→14:53)
[2025-08-14] MEDS ORDERED: METH4PAK PO (14:08)
[2025-08-14] MEDS ORDERED: AZIT-185 PO (14:08)
--- NOTE | 2025-08-14 14:10 | DVHDS2 ---
Discharge Summary Date of Admission Aug 10, 2025 at 11:13 Date of Discharge: Aug 14, 2025 Admitting Diagnosis Asthma exacerbation, Bilateral leg paresthesia, Dyspnea, Depression, Hyperlipidemia, DM type 2 Left shoulder pain Labs/Diagnostic Data: Laboratory Results Test 08/14/25 05:42 08/11/25 05:43 08/10/25 08:37 08/10/25 07:22 White Blood Count 11.7 10^3/uL (4.4-10.8) Red Blood Count 4.34 10^6/uL (4.0-5.20) Hemoglobin 12.8 g/dL (12.2-16.2) Hematocrit 38.3 % (36.0-46.0) Mean Corpuscular Volume 88.3 fL (80.0-100.0) Mean Corpuscular Hemoglobin 29.4 pg (28.0-32.0) Mean Corpuscular Hemoglobin Concent 33.3 g/dL (32.0-36.0) Red Cell Distribution Width 13.7 % (11.8-14.3) Platelet Count 506 10^3/uL (140-450) Mean Platelet Volume 6.5 fL (6.9-10.8) Neutrophils (%) (Auto) 87.2 % (37.0-80.0) Lymphocytes (%) (Auto) 11.4 % (10.0-50.0) Monocytes (%) (Auto) 1.3 % (0.0-12.0) Eosinophils (%) (Auto) 0.0 % (0.0-7.0) Basophils (%) (Auto) 0.1 % (0.0-2.0) Neutrophils # (Auto) 10.2 10 ^3/uL (1.6-8.6) Lymphocytes # (Auto) 1.3 10 ^3/uL (0.4-5.4) Monocytes # (Auto) 0.2 10 ^3/uL (0-1.3) Eosinophils # (Auto) 0 10 ^3/uL (0-0.8) Basophils # (Auto) 0 10 ^3/uL (0-0.2) Nucleated Red Blood Cells 0.0 % Sodium Level 139 mmol/L (136-145) Potassium Level 4.4 mmol/L (3.5-5.1) Chloride Level 99 mmol/L (98-107) Carbon Dioxide Level 29 mmol/L (20-31) Anion Gap 11 (5-15) Blood Urea Nitrogen 20 mg/dL (9-23) Creatinine 0.89 mg/dL (0.550-1.02) Glomerular Filtration Rate Calc 72 mL/min (>90) BUN/Creatinine Ratio 22.5 (10.0-20.0) Serum Glucose 140 mg/dL (74-106) Calcium Level 9.7 mg/dL (8.7-10.4) Total Bilirubin 0.4 mg/dL (0.2-1.0) Aspartate Amino Transferase (AST) 18 U/L (13-40) Alanine Aminotransferase (ALT) 17 U/L (7-40) Alkaline Phosphatase 74 U/L (46-116) Total Protein 7.4 g/dL (5.7-8.2) Albumin 4.4 g/dL (3.2-4.8) Troponin I High Sensitivity 4 ng/L (</=34) Lactic Acid Level 1.4 mmol/L (0.4-2.0) Test 08/10/25 06:13 Urine Color Colorless (Yellow) Urine Clarity Clear (Clear) Urine pH 5.0 (5.0-9.0) Urine Specific [place] 1.013 (1.001-1.035) Urine Protein Negative (Negative) Urine Ketones Negative (Negative) Urine Blood Negative /uL (Negative) Urine Nitrite Negative (Negative) Urine Bilirubin Negative (Negative) Urine Urobilinogen Normal mg/dL (Negative) Urine Leukocyte Esterase 3+ /uL (Negative) Urine RBC 3 /hpf (0 - 4) Urine Microscopic WBC 16 /HPF (0-5) Urine Squamous Epithelial Cells Few /hpf (<5) Urine Bacteria None seen /hpf (None Seen) Urine Mucus Few (None Seen) Urine Glucose 4+ mg/dL (Normal) Other Laboratory Tests 08/14/25 05:42 Brief Hx & Hospital Course: This is a 64-year-old female with past medical history of asthma, depression, and hyperlipidemia, who came to the hospital for shortness of breath. Patient states she was sleeping when she was abruptly woken up by coughing that caused her to become short of breath. She tried using her asthma medication to stop the coughing but it did not help. She states it began to feel like she couldn't breath so she ran to her daughter's room and asked her to call EMS. She was admitted for asthma exacerbation. The patient was put on Ceftriaxone, and azithromax IV. Patient also on solumedrol IV and Nebulizer with atrovent and albuterol. Subsequently her respiratory status improved. She complains of shoulder pain. Xray show no fracture. She request injection, but I explained to her it can be done as outpatient. As right now, just pain medication. Today, her shortness of breath improved. She able to ambulate. I discharge her home. Advise her to follow up with PCP 1-2 weeks. Follow up with paper sales representative per schedule. General Appearance: Alert, Oriented X3, Cooperative, No acute distress HEENT: Atraumatic, PERRLA, EOMI, Mucous membr. moist/pink Neck: Supple Lungs: Clear to auscultation, Normal air movement Cardiovascular: Regular rate, Normal S1, Normal S2, No murmurs, Gallops, Rubs Abdomen: Normal bowel sounds, Soft, No tenderness Neuro: Cranial nerves 3-12 NL Psych/Mental Status: Mental status NL Condition at Discharge: Stable Final Diagnosis/Problems List Asthma exacerbation, Bilateral leg paresthesia, Dyspnea, Depression, Hyperlipidemia, DM type 2 Left shoulder pain Discharge Disposition: Home Discharge Instruct/Medications Diet: Cardiac 2g Na,low cholest Activity: No Restrictions, As Tolerated Follow Up/Referral: PCP 1-2 weeks Scheduled Azithromycin (Zithromax Tablet), 250 MG PO DAILY Methylprednisolone (Medrol Dosepak), 4 MG PO UD Pantoprazole Sodium Sesquihydr (Pantoprazole Sodium), 40 MG PO DAILY@0600 Scheduled PRN Albuterol Sulfate (Ventolin), 2.5 MG NEB Q4HPRN PRN Hydrocodone-Acetaminophen (Hydrocodone Bitartrate/AC 5-325 mg), 1 TAB PO Q4HP PRN Discharge Statement: "Patient was advised to return to the ER or call 911 if any headaches, dizziness, shortness of breath, chest pain, abdominal pain, bleeding, fevers, or worsening of medical condition. Patient was counseled about treatment plan, medications, possible side effects, patientverbalized understanding. All questions were answered to the best of my ability. This discharge took greater then 30 minutes in planning, reviewing documentation, counseling the patient, and discussing with other team members." ASSESSMENT ASSESSMENT Assessment asthma exacerbation Date of Service: Aug 14, 2025 Billing Provider: GLADIS BRISENO MD Common Visit Codes: [id number] DISCH DAY >30min GLADIS BRISENO MD Aug 14, 2025 14:09
[2025-08-14] MEDS ORDERED: ALB5IS NEB (14:53)
[2025-08-14] MEDS ORDERED: PANT40T PO (14:53)
== END 2025-08-14 16:30 | disposition home or self-care (01) | DRG 141 ==
LOC: EDBD 05:48 → ER 05:48 → OVERFLOW 11:13 → EAST 13:51
PROVIDERS: ADMIT Internal Medicine; ATTEND Internal Medicine
DX: J45.21 Mild intermittent asthma with (acute) exacerbation (principal); J96.10 Chronic respiratory failure, unspecified whether with hypoxia or hypercapnia; N39.0 Urinary tract infection, site not specified; E11.9 Type 2 diabetes mellitus without complications; F32.A Depression, unspecified; E78.5 Hyperlipidemia, unspecified; Z79.899 Other long term (current) drug therapy
CPT/HCPCS: 36415; 71045; 73030; 80048; 80053; 81001; 83605; 84484; 85025; 87040; 93005; 94640; G0378; J1885; J2405; Q0162